=== PATIENT | male | born 1960 | race Caucasian/White ===

== ENCOUNTER 2016-11-20 12:49 | Emergency (ER) | payer OTHER ==
[~2016-11-20] VITALS: Ht 188 cm; Wt 106.8 kg
[2016-11-20 12:53] VITALS: BP 151/100; PULSE 66; RESP 15; O2SAT 99
--- NOTE | 2016-11-20 13:07 | ED.REPORT ---
HPI-Abd Pain M 40 and Over Date of Service Nov 20, 2016 ED Provider: Felipe Edwards MD The patient is a 56 year old male who presents to the emergency department complaining of hematuria that he noticed this morning around 0600. He has had a few episodes since onset. This morning around 0300 he also noticed "mucousy" discharge from his penis. He had a similar episode last week and his physician ordered lab work. He denies flank pain, back pain, abdominal pain, dysuria, nausea, vomiting, fever or chills. Nursing Notes Stated Complaint: BLOOD IN URINE Chief Complaint: Male Abdominal Pain Nursing Notes Reviewed: Yes Allergies: Coded Allergies: Penicillins (Verified Adverse Reaction, Unknown, ,mother said, 11/20/16) Scheduled Ciprofloxacin (Ciprofloxacin) 500 Mg Tablet 500 MG PO BID General Time Seen by MD: 13:06 Chief Complaint Other (hematuria) Hx Obtained From: Patient Arrived By: Walk-in Sudden in Onset?: Yes Onset Occurred: 5 - 8 hours ago Symptom Duration: Intermittent Progression since Onset: Intermittent Severity: Current: No pain currently Severity: Maximum: No pain Recent Healthcare: No recent hospitalization, Recent doctor visit Similar Sx Previous: Yes Past Medical History Past Medical History Denies Family History Noncontributory Social History Other Social History: Local resident Ambulatory Status Independent Review of Systems Review of Systems Note: +felt "stiff" Constitutional: Denies: Chills, Fever GI: Denies: Abdominal pain, Nausea, Vomiting Male: Reports Hematuria, Reports Penile discharge, Denies Dysuria, Denies Flank pain Musculoskeletal: Denies: Back pain Complete sys rev & neg: except as marked. Physical Exam Initial Vital Signs Vital Signs (First) Date Time Temp Pulse Resp B/P Pulse Ox O2 Delivery O2 Flow Rate FiO2 11/20/16 12:53 36.8 66 15 151/100 99 Room Air Initial VS: Reviewed Head / Eyes: Atraumatic, Normocephalic, PERRL ENT: Mucous membranes moist, Conjunctiva normal, No scleral icterus Neck: Supple, Non-tender, Full range of motion Lymphatic: No lymphadenopathy Extremities: Vascular intact, Neuro intact, No swelling, No tenderness Skin: Warm, Dry, No cyanosis Neurologic: Alert, Oriented, Nonfocal Psychiatric: Mood/affect normal, Behavior normal, Normal thought content General/Constitutional: Awake, Alert Respiratory / Chest: Atraumatic, Breath sounds NL, Breath sounds = bilat, No respiratory distress, No rales, No rhonchi, No wheezing Cardiovascular: Heart rate NL, Regular rhythm, Heart sounds NL, No murmurs, No rubs, Peripheral circulation NL Abdomen: Atraumatic, Soft, Non-tender, McBurney's non-tender, No guarding, No rebound, BS normoactive, No distention, No hernia, No palpable mass, No pulsatile mass Back: Inspection NL, Non-tender, No CVA tenderness Male Genitourinary: Atraumatic, Inspection NL, Penis NL, No penile discharge Interpretation & Diagnostics Lab Results Interpretation Test 11/20/16 13:44 Hold Urine Received (Received) Re-Eval/Medical Decision Med Decision/Clinical Course 56-year-old male presenting with asymptomatic hematuria. He has had this in the past started again today. His urine is positive for leukocytes and blood. He has no CVA tenderness and no abdominal tenderness on exam. He denies any abdominal pain whatsoever. We will treat for UTI as this may be hemorrhagic cystitis. I do not believe imaging for kidney stones is necessary at this time emergently given no abdominal pain or back pain. He has no sign symptoms of sepsis. Recommend follow-up with primary doctor next week for possible imaging if hematuria persists. He may also warrant referral to urology for cystoscopy if symptoms persist. Source of Hx: Old records Time of Eval: 14:14 Re-Evaluation/Progress Note: Rechecked the patient. Discussed plan for discharge. All questions were addressed. Counseled Regarding: Diagnosis, Lab results, Need for follow-up, When/why to return to ED Discharge & Departure Primary Impression: UTI (urinary tract infection) Urinary tract infection type: site unspecified Hematuria presence: with hematuria Qualified Code: N39.0 - Urinary tract infection, site not specified Additional Impression: Hematuria Disposition: Home Vital Signs - All Vital Signs Date Time Temp Pulse Resp B/P Pulse Ox O2 Delivery O2 Flow Rate FiO2 11/20/16 14:47 36.6 64 16 155/105 98 11/20/16 12:53 36.8 66 15 151/100 99 Room Air )( All Prior VS Reviewed: Yes Condition: Stable Patient Instructions: Urinary Tract Infection in Men (ED) Additional Instructions: Thank you for entrusting us with your care today. Your urinalysis does show evidence of a urinary tract infection. Take the antibiotic as prescribed. Call your regular doctor today to schedule a followup appointment in the next week. Please return to the emergency department if you develop abdominal pain, back pain, inability to urinate, fever, vomiting, or any other new or concerning symptoms. Referrals: Eusebio Fields DO (PCP) Johny Attestation Portions of this note were transcribed by Ada Sears. I, Dr. Edwards personally performed the history, physical exam and medical decision-making; I reviewed and confirmed the accuracy of the information in the transcribed note. Signed by: Johny Bolden, 11/20/2016 at 1430. copies to: Eusebio Fields Ben M MD Nov 20, 2016 13:07 Ada Sears Nov 20, 2016 13:12
[2016-11-20] MEDS ORDERED: CIPR-198 PO (14:26)
[2016-11-20 14:47] VITALS: BP 155/105; PULSE 64; RESP 16; O2SAT 98
[2017-01-17] MEDS ORDERED: TAMS0.4C98 PO (15:52)
== END 2016-11-20 14:46 | disposition home or self-care (01) ==
LOC: SED 12:49
DX: N39.0 Urinary tract infection, site not specified (principal); R31.9 Hematuria, unspecified; Z88.0 Allergy status to penicillin

== ENCOUNTER 2017-01-18 05:52 | Day surgery (SDC) | payer OTHER ==
[2017-01-18] VITALS (10 sets, daily range): BP systolic 127–142; BP diastolic 72–91; PULSE 62–68; RESP 12–18; O2SAT 95–100
[~2017-01-18] VITALS: Ht 188 cm; Wt 106.3 kg
[~2017-01-18 05:52] MED LIST: TAMS0.4C98 PO
[2017-01-18] MEDS ORDERED: Neostigmine 1 mg/mL 10 mL Inj ONE (05:53)
[2017-01-18] MEDS ORDERED: Dexamethasone 4 mg/mL Inj ONE (05:53)
[2017-01-18] MEDS ORDERED: Glycopyrrolate 0.2 MG/ML 1mL Inj ONE (05:53)
[2017-01-18] MEDS ORDERED: Rocuronium 10 mg/mL 5 mL Inj ONE (05:53)
[2017-01-18] MEDS ORDERED: Ondansetron 2 mg/mL 2 mL Inj ONE (05:53)
[2017-01-18] MEDS ORDERED: MetoCLOpramide 5 mg/mL 2 mL Inj ONE (05:53)
[2017-01-18] MEDS ORDERED: Propofol 10,000 mCg/mL 20 mL Inj ONE (05:53)
[2017-01-18] MEDS ORDERED: levoFLOXacin Inj 500 MG in IV Premix 1 EACH IV ONE (06:00)
[2017-01-18] MEDS: Lactated Ringer's 1,000 ML IV SCH ×2 (06:46→07:26)
--- NOTE | 2017-01-18 07:20 | PCM.HPANE ---
Patient Data Surgeon Admitting Provider: Attending Provider:Angel Keys MD Primary Care Physician:Jose Miguel Ortiz DO Other Provider:Lee Rangel Anesthesia Reason for Visit Bladder Tumor Ht/WT & BMI Height (Feet): 6 Height (Inches): 2.00 Weight (Kilograms): 106.300 Body Mass Index 30.00 Allergies Coded Allergies: Penicillins (Verified Adverse Reaction, Unknown, UNKNOWN (INFO FROM MOTHER), 01/17/17) Past Anesthesia History Anesthesia History: Denies:: Anesthesia Reactions, Malignant Hyperthermia Diabetes History Hx Diabetes?: No MRSA MRSA: No Medications Home Meds Incl Beta Gilbert: No Discontinued Reported Medications Tamsulosin (Flomax)0.4 Mg Capsule0.4 Mg PO DAILY Ref 0 01/17/17 Discontinued Scripts Ciprofloxacin 500 Mg [id number] Mg PO BID 7 Days Prov:Felipe Edwards MD 11/20/16 History History of ENT Problems?: No HEENT History: Denies:: Abnormal Airway Cataracts Difficult Intubation Dysphagia Glaucoma Hearing Problem Sinus Problem TMJ Denture Type: None Teeth Condition: Within Normal Limits Hx of Heart Problems?: No Cardiovascular History: Denies:: Congestive Heart Failure Heart Murmur Hypertension Hx of Respiratory Problem?: Yes Respiratory History: Positive for:: Pneumonia (HX OF) Use of C-PAP Machine (SNORES) Denies:: Tuberculosis Hx Neurologic Problems?: Yes Hx of GI Problems?: No Hx of Problems?: Yes Genitourinary History: Positive for:: Urinary Tract Infection (HX OF) Other Pertinent History: BLADDER TUMOR=CURRENT PROBLEM C/OF HEMATURIA,LUTS Male Hx: Denies:: Prostate Problems Scrotal Mass Testicular Surgery Skin History: Denies:: History Skin Disorders? Pressure Ulcers Hx Musculoskeletal Problems?: Yes Hx of Psycho/Social Problems?: No Hx Surgeries?: Yes (BUNIONECTOMY) Hx Any Other Health Problems?: Yes Other History: Denies:: Cancer Endocrine Disease Hospitalization Thyroid Disease Hx Diabetes: No Have You Smoked inLast 12 mo: NoApprox How Many Cigarettes/day: 44YR HX Stop/Bang Treated for Sleep Apnea?: No Do You Have a CPAP Machine?: No S-Snoring: Do You Snore Loudly: Yes T-Tired: feel tired, fatigued: Yes O-Obsered: Observed not breath: Yes P-Blood Pressure: treated: No B- Body Mass Index > 35 kg/m2: No A- Age over 50: Yes N- Neck Large Circumference: Yes G- Gender Male: Yes RUKHSANA Total Score: 6 RUKHSANA Risk Assessment: Low Risk, <3 Yes Risk Assessment Category Category 1A: Patient has history of documented sleep apnea, and HAS NOT received any narcotic, sedative or anesthesia administration during this stay. Category 1B: Patient has history of documented sleep apnea, and HAS received any narcotic , sedative or anesthesia administration during this stay Category 2: Patient has SUSPECTED Obstructive Sleep Apnea, and HAS received any narcotic , sedative or anesthesia administration during this stay. Category 3: Patient has SUSPECTED Obstructive Sleep Apnea and HAS NOT received narcotic, sedative or anesthesia administration during this stay. Category 4: Outpatient in Procedural Areas with known sleep apnea or who screen positive for High Risk via the STOP/BANG questionnaire. Exam Exam Vital Signs Vital Signs Date Time Temp Pulse Resp B/P Pulse Ox O2 Delivery O2 Flow Rate FiO2 01/18/17 06:25 36.3 66 14 136/91 97 Room Air General Appearance: Oriented X3 HEENT/AIRWAY: MP 2 Lungs: Normal Air Movement Heart: Regular Rate/Rhythm Meds/Labs/Diagnostics Admission Meds Current Medications Lactated Ringer's (Lr) 1,000 ml @ 120 mls/hr Q8H20M IV Last administered on t 06:46; Start 01/18/17 at 05:00; Stop 01/18/17 at 13:19 Plan Impression Patient chart reviewed, patient interviewed and anesthestic plan with risks, benefits, and alternatives discussed, and informed consent obtained. ASA Physical Status: ASA2 Mod Systemic Disease Anesthetic Plan: GA Bene/Risks/Altern/Consents: Yes HP Complete Prior to Induction: Yes Jos George MD Jan 18, 2017 07:20
[2017-01-18] MEDS ORDERED: fentaNYL-PF 50 mCg/mL 2 mL Inj IVPUSH PRN (07:50)
[2017-01-18] MEDS ORDERED: Lactated Ringer's 500 ML IV PRN (07:50)
[2017-01-18] MEDS ORDERED: Phenylephrine 10,000 mCg/mL Inj IVPUSH PRN (07:50)
[2017-01-18] MEDS ORDERED: Lactated Ringer's 1,000 ML IV SCH (07:50)
[2017-01-18] MEDS ORDERED: HYDROmorphone 1 mg/mL Inj IVPUSH PRN (07:50)
[2017-01-18] MEDS ORDERED: Labetalol 5 mg/mL 4 mL Inj IV PRN (07:50)
[2017-01-18] MEDS ORDERED: Ondansetron 2 mg/mL 2 mL Inj IVPUSH PRN (07:50)
[2017-01-18] MEDS ORDERED: EPHEDrine Sulfate 50 mg/mL Inj IVPUSH PRN (07:50)
[2017-01-18] MEDS ORDERED: MetoCLOpramide 5 mg/mL 2 mL Inj IVPUSH PRN (07:50)
[2017-01-18] MEDS ORDERED: Dexamethasone 4 mg/mL Inj IVPUSH PRN (07:50)
[2017-01-18] MEDS ORDERED: Belladonna Alk-Opium 60 mg Rectal Suppository RECTAL ONE (08:43)
--- NOTE | 2017-01-18 09:10 | PCM.SURGPO ---
Immediate Operative Note Date of Surgery: Jan 18, 2017 Pre Operative Diagnosis Bladder tumor Post Operative Diagnosis Bladder tumor Procedure Cystoscopy, transurethral resection of bladder tumor (>5cm), and Mitomycin intravesical instillation Surgeon and Credit Coordinator Surgeon: Angel Keys MD Assistants: None Findings Cystoscopy revealed an approx. 5-6cm papillary and sessile bladder tumor on L trigone (approx. 1-2cm posterior to L ureteral orifice). Bladder tumor was resected using bipolar loop electrocautery. Mitomycin intravesical instillation was performed at the end of the case. Complications There were no periprocedural complications identified. Surgical Specimen Removed: Yes Specimen sent to Pathology: Yes Surgical Specimen description: L trigone bladder tumor - superficial, L trigone bladder tumor - deep Anesthetic Administered: GA Grafts, Implants: Other (20F Coude Oliver catheter clamped) Output, Estimated Blood Loss: 10 Blood Admin during surgery: No Additional information Patient to return to see me in 6-8 days for post-op visit and trial of void ( early-mid AM appt.). Angel Keys MD Jan 18, 2017 09:09
--- NOTE | 2017-01-18 09:43 | PCM.DISURG ---
Surgical Discharge Instruction Date of Service Jan 18, 2017 Dates of Hospitalization Date of Hospital Admission Jan 18, 2017 Providers Admitting Physician: Angel Keys MD Primary Care Physician: Jose Miguel Ortiz DO Attending Physician: Angel Keys MD Discharge Diagnosis Discharge Diagnosis Bladder tumor Post Operative diagnosis Bladder tumor Diet Discharge Diet: No restrictions, Other (Drink at least 10-12 8oz. glasses (3 liters) of fluids per day as long as there is blood in the urine) Activity Discharge Activity-General: No driving while taking narcotic, Other (No strenuous exercise/activity or moderate or heavy lifting (>10 lbs.) for 1 week) Dressing and Incisional Care Hygiene: May shower Follow Up Plan Follow-up Provider (F9): Angel Keys MD Follow-up appointment: Days (6-8 days for post-op visit and trial of void ( early-mid AM appt.)) Call your provider for: Fever, Chills, Vomiting, Other (Non-draining Oliver catheter, pain uncontrolled by pain medications) Angel Keys MD Jan 18, 2017 09:43
[2017-01-18] MEDS ORDERED: HYDROcodone-APAP 5-325 mg Tablet PO PRN (09:45)
[2017-01-18] MEDS ORDERED: HYDROmorphone 0.5 mg/0.5 mL iSecure Syringe ONE (10:06)
[2017-01-18] MEDS ORDERED: Mitomycin Inj 40 MG in Syringe 1 EACH IRRIGATION ONE (10:10)
--- NOTE | 2017-01-18 12:52 | PCM.ANEP1 ---
Post Anesthesia PACU Phase 1 Assessment Vital Signs Vital Signs Date Time Temp Pulse Resp B/P Pulse Ox O2 Delivery O2 Flow Rate FiO2 01/18/17 10:11 36.1 67 14 134/83 95 Room Air 01/18/17 09:35 66 12 142/91 97 Room Air 01/18/17 09:30 65 13 137/72 96 Room Air 01/18/17 09:20 36.0 63 12 137/85 96 Room Air 01/18/17 09:15 62 12 132/78 96 Room Air 01/18/17 09:10 62 13 129/88 95 Room Air 01/18/17 09:05 63 13 127/78 98 Room Air 01/18/17 09:00 68 14 133/81 99 Simple Mask 8 01/18/17 08:56 36.5 68 18 137/85 100 Simple Mask 8 01/18/17 06:25 36.3 66 14 136/91 97 Room Air Anesthetic Administered: GA Level of Alertness: Awake, talking Pain: No Nausea or Vomiting: No CV Function & Hydration Stable: Yes Airway Device: Lungs: Normal Air Movement PACU Phase 2 Assessment Patient Instructions Provided: N/A Jos George MD Jan 18, 2017 12:52
--- NOTE | 2017-01-19 13:50 | PATH ---
SURGICAL PATHOLOGY Attending Physician:Angel Keys MD CASE STATUS: Signed Out PATIENT NAME: STEPHANIE ARTHUR PID: [id number] : 1960 DATE COLLECTED:01/18/2017 15:58 SPECIMEN: 1: Bladder, Biopsy 2: Bladder, Biopsy CLINICAL HISTORY: 1. LEFT TRIGONE BLADDER TUMOR, SUPERFICIAL 2. LEFT TRIGONE BLADDER TUMOR , DEEP FINAL DIAGNOSIS: 1.LEFT TRIGONE BLADDER TUMOR, SUPERFICIAL: PAPILLARY UROTHELIAL CARCINOMA, HIGH GRADE. Negative for evidence of invasion of lamina propria. No muscularis propria identified. 2.LEFT TRIGONE BLADDER TUMOR, DEEP: PAPILLARY UROTHELIAL CARCINOMA, HIGH GRADE WITH NO DEFINITIVE EVIDENCE OF INVASION OF LAMINA PROPRIA (SEE COMMENT). No definite muscularis propria tissue identified. [id number] NOTE: The material from part 2 is involved with extensive cautery artifact which limits evaluation as to the presence or absence of invasion. Evidence of invasion is not noted. As part of a routine quality improvement manager, Dr. Angelique Chacko has also reviewed this case and agrees with the diagnosis. Results of this evaluation are telephoned to the office of Dr. Angel Keys at 12:15 pn 01/19/17. GROSS DESCRIPTION: The specimen is received in two formalin filled containers labeled with the patient's name. 1). The specimen is sublabeled "left trigone bladder tumor superficial" and consists of multiple portions of pink-johnson tissue which aggregate to 4.0 x 1.5 x 0.3 CM. The specimen is filtered and entirely submitted in cassettes 1A, 1B, 1C, 1D. 2). The specimen is sublabeled "left trigone bladder tumor, deep" and consists of multiple portions of tissue which aggregate to 2.5 x 2.0 x 0.6 CM. The specimen is entirely submitted in cassette 2A, 2B. 01/18/2017 [facility] MICRO DESCRIPTION: See diagnosis. ICD-9 CODES: CPT CODES: 1: 25605 2: 51693 Electronically Signed Out Gurmeet Wise MD [facility] Pathology [facility] [address], [place] [address] Technical component performed at [facility], [facility] [address], [place], [address]
--- NOTE | 2017-01-20 05:57 | OP ---
[address] [address] OPERATIVE REPORT PATIENT: STEPHANIE ARTHUR : 1960 MR#: [id number] ADMIT: 01/18/2017 JOB ID: [id number] DATE OF SURGERY: 01/18/2017 PREOPERATIVE DIAGNOSIS(ES): Bladder tumor. POSTOPERATIVE DIAGNOSIS(ES): Bladder tumor. PROCEDURE: 1. Cystoscopy. 2. Transurethral resection of bladder tumor (greater than 5 cm). 3. Mitomycin intravesical instillation. SURGEON: Angel Keys MD. WILDLIFE PROTECTOR: None. ANESTHESIA: General. ESTIMATED BLOOD LOSS: 10 mL. SPECIMENS: Left trigone bladder tumor-superficial, left trigone bladder tumor-deep. DRAINS: 22 0-Guyanese Coude Oliver catheter clamped. COMPLICATION: None. CONDITION: Stable. FINDINGS: Cystoscopy revealed an approximately 5-6 papillary and sessile bladder tumor on the left trigone (approximately 1-2 cm posterior to the left ureteral orifice). Bladder tumor was resected using bipolar loop electrocautery. Mitomycin intravesical instillation was performed at the end the case. INDICATIONS: The patient is a 56-year-old male, found on office cystoscopy to have a bladder tumor. The patient now presents for cystoscopy, transurethral resection of bladder tumor, possible left renal stent placement and mitomycin intravesical instillation. DESCRIPTION OF PROCEDURE: The patient was brought to the operating room and placed supine on operating table. The patient was given Levaquin IV antibiotics. Sequential compression device boots were placed. General anesthesia was administered. The patient was brought down into dorsal lithotomy position. The patient was prepped and draped in a standard surgical fashion. A 26-Guyanese continuous flow resectoscope was placed into the distal urethra without difficulty. Cystoscopy revealed normal distal urethra, mild bilobar prostatic hypertrophy, mildly trabeculated bladder, bilateral ureteral orifices in normal position. No bladder calculi and an approximately 5-6 cm papillary and sessile bladder tumor in the left trigone (approximately 1-2 cm posterior to the left ureteral orifice). The bladder tumor was resected in its entirety using Thunderbeat bipolar loop electrocautery and sent to pathology for permanent specimen. The base of the bladder tumor resected area including normal surrounding bladder mucosa were fulgurated. The base of the bladder tumor resected area including normal surrounding bladder mucosa were fulgurated using the bipolar loop electrocautery. Excellent hemostasis was achieved. No evidence for bladder perforation was seen. Bilateral ureteral orifices were seen to be intact and well-preserved. Bilateral usual ureteral orifices were seen to be intact and well-preserved at the end the case. The continuous-flow resectoscope was removed from the patient. A 22 0-Guyanese Coude Oliver catheter was placed through the urethra and into the bladder without difficulty. Oliver catheter balloon was inflated with 10 mL sterile water. Oliver catheter was initially placed to straight drainage. After the Oliver catheter was completely drained then mitomycin chemotherapy solution was placed into the patient's bladder via Oliver catheter and the Oliver catheter was clamped, thus mitomycin intravesical instillation was performed at the end the case. The skin was cleaned and dried. The patient was placed in supine position. The patient was awakened from general anesthesia and transferred to the recovery room in stable condition. The patient tolerated the procedure well. POSTOPERATIVE PLAN: The patient to return to see me in the office in 6-8 days for a postoperative visit and trial of void (early to mid morning appointment).
== END 2017-01-18 23:59 | disposition home or self-care (01) ==
LOC: SAS 05:52
PROVIDERS: ATTEND Urology
DX: D49.4 Neoplasm of unspecified behavior of bladder (principal); C67.0 Malignant neoplasm of trigone of bladder
CPT/HCPCS: 52235; J1100; J1170; J2405; J2710; J2765; J7120